=== PATIENT | female | born 1960 | race Caucasian/White ===

== ENCOUNTER → 2017-12-21 | Outpatient (CLI) | payer OTHER | LOC: FIMAGING 15:49 | PROVIDERS: ATTEND Internal Medicine Geriatric Medicine | DX: M12.832 Other specific arthropathies, not elsewhere classified, left wrist (principal) ==

== ENCOUNTER → 2018-05-29 | Outpatient (CLI) | payer OTHER | LOC: FIMAGING 13:44 | PROVIDERS: ATTEND Internal Medicine Geriatric Medicine | DX: Z12.31 Encounter for screening mammogram for malignant neoplasm of breast (principal) ==

== ENCOUNTER 2018-06-30 | Emergency (ER) | payer OTHER | END 2018-06-30 12:49 | disposition home or self-care (01) | DX: M25.552 Pain in left hip (principal); R26.9 Unspecified abnormalities of gait and mobility; Z87.81 Personal history of (healed) traumatic fracture; F31.9 Bipolar disorder, unspecified; Z90.81 Acquired absence of spleen; F17.210 Nicotine dependence, cigarettes, uncomplicated ==

== ENCOUNTER → 2018-08-08 | Outpatient (CLI) | payer OTHER | LOC: FIMAGING 10:38 | PROVIDERS: ATTEND Nurse Practitioner Family | DX: M25.552 Pain in left hip (principal); M89.9 Disorder of bone, unspecified | CPT/HCPCS: 78300; A9503 ==